=== PATIENT | male | born 1945 | race Caucasian/White ===

== ENCOUNTER 2018-01-17 18:35 | Inpatient (IN) | payer OTHER ==
[~2018-01-17] VITALS: Ht 175.3 cm; Wt 81.6 kg
[2018-01-17 18:35] VITALS: BP 152/94
[2018-01-17] MEDS ORDERED: ALBUTEROL 0.083% 2.5 MG/3 ML NEBU INH ONE (19:00)
[2018-01-17] MEDS ORDERED: methylPREDNISolone SS 125 MG/2 ML VIAL IVP ONE (19:00)
[2018-01-17] MEDS ORDERED: IPRATROPIUM 0.02% 0.5 MG/2.5 ML NEBU INH ONE (19:00)
[2018-01-17 20:44] LABS: BASOPHILS # (AUTO) 0.1 K/uL (0.00-0.22); BASOPHILS % (AUTO) 0.9 % (0.0-2.0); EOSINOPHILS # (AUTO) 0.1 K/uL (0-0.4); EOSINOPHILS % (AUTO) 1.1 % (0.0-4.0); HEMATOCRIT 47.2 % (36-52); HEMOGLOBIN 15.5 g/dL (12.0-18.0); LYMPHOCYTES # (AUTO) 1.5 K/uL (2.0-11.5); LYMPHOCYTES % (AUTO) 15.3 % (20.5-51.1); MEAN CORPUSCULAR HEMOGLOBIN 33 pg (27-31); MEAN CORPUSCULAR HGB CONC 33 g/dL (33-37); MEAN CORPUSCULAR VOLUME 99.6 fL (80-94); MONOCYTES # (AUTO) 0.7 K/uL (0.8-1.0); MONOCYTES % (AUTO) 7.2 % (1.7-9.3); NEUTROPHILS # (AUTO) 7.3 K/uL (1.8-7.7); NEUTROPHILS % (AUTO) 75.5 % (42.2-75.2); PLATELET COUNT (AUTO) 167 K/uL (140-450); RED BLOOD CELL COUNT(AUTO) 4.74 MIL/uL (4.20-6.10); RED CELL DISTRIBUTION WIDTH 14.1 % (11.6-13.7); WHITE BLOOD COUNT (AUTO) 9.7 K/uL (4.8-10.8)
[2018-01-17] MEDS ORDERED: NACL 0.9% 1,000 ML IV ONE (21:05)
[2018-01-17 21:08] LABS: SODIUM SERUM 144 mmol/L (136-145)
[2018-01-17 21:09] LABS: ALBUMIN 3.6 g/dL (3.4-5.0); ANION GAP 15.6 (8-16); ASPARTATE AMINOTRANSFERASE 20 U/L (15-37); CARBON DIOXIDE 20.8 mmol/L (21-32); CHLORIDE 111 mmol/L (98-107); CREATININE 1.4 mg/dL (0.7-1.3); GLUCOSE 99 mg/dL (74-106); POTASSIUM 3.4 mmol/L (3.5-5.1); TOTAL BILIRUBIN 1.2 mg/dL (0.0-1.0); UREA NITROGEN, BLOOD 15 mg/dL (7-18)
[2018-01-17 21:23] LABS: PROTHROMBIN TIME 13.3 secs (10.8-13.4)
[2018-01-17 23:22] LABS: APPEARANCE,URINE CLEAR (CLEAR); BILIRUBIN,URINE 1+ (NEGATIVE); BLOOD, URINE NEGATIVE (NEGATIVE); COLOR,URINE YELLOW (YELLOW); LEUKOCYTE ESTERASE ,URINE NEGATIVE (NEGATIVE); NITRITE, URINE NEGATIVE (NEGATIVE); PH,URINE 5.5 (5.0-9.0); UGLUCOSE NEGATIVE (NEGATIVE)
[2018-01-17 23:24] LABS: RBC,URINE 0-5 (RARE) /HPF (0-5); WBC,URINE 0-5 (RARE) /HPF (0-5)
[2018-01-18] VITALS (8 sets, daily range): BP systolic 112–140; BP diastolic 65–85
[2018-01-18] MEDS ORDERED: ACETAMINOPHEN 325 MG TAB PO PRN (00:10)
[2018-01-18] MEDS ORDERED: DOCUSATE SODIUM 100 MG GELCAP PO PRN (00:10)
[2018-01-18] MEDS ORDERED: ONDANSETRON 4 MG/2 ML VIAL IM/IVP PRN (00:10)
[2018-01-18 02:35] LABS: MAGNESIUM 1.8 mg/dL (1.8-2.4); PHOSPHORUS 3.2 mg/dL (2.5-4.9)
[2018-01-18 02:37] LABS: CHOL/HDL RATIO 3.3 (1-4.5)
[2018-01-18 02:38] LABS: FREE T4 (FREE THYROXINE) 1.44 ng/dL (0.76-1.46); THYROID STIMULATING HORMONE 3.4 uIU/mL (0.34-3.74)
[2018-01-18] MEDS ORDERED: MECLIZINE 25 MG TAB PO PRN (02:45)
[2018-01-18] MEDS ORDERED: NITROGLYCERIN 0.4 MG TAB SL PRN (02:50)
[2018-01-18] MEDS ORDERED: DEXT 5% /NACL 0.9% 1,000 ML IV SCH (03:30)
[2018-01-18 03:51] LABS: BARBITURATE, URINE NEGATIVE ng/ml (NEG <=200); BENZODIAZEPINE, URINE NEGATIVE ng/mL (NEG <=200); CANNABINOID, URINE NEGATIVE ng/mL (NEG <=50); COCAINE, URINE NEGATIVE ng/mL (NEG <=300); OPIATE, URINE NEGATIVE ng/mL (NEG <=2000); PHENCYCLIDINE SCREEN,URINE NEGATIVE ng/mL (NEG <=25)
[2018-01-18] MEDS: ALBUTEROL SULFATE/IPRATROPIU 3 ML SOL IH PRN (04:17)
[2018-01-18] MEDS: methylPREDNISolone SS 125 MG/2 ML VIAL IVP SCH ×2 (04:36→14:46)
[2018-01-18] MEDS: ALBUTEROL SULFATE/IPRATROPIU 3 ML SOL IH SCH ×3 (07:55→20:07)
[2018-01-18] MEDS: METOPROLOL 25 MG TAB PO SCH ×2 (10:15→20:55)
[2018-01-18] MEDS: POTASSIUM CHLORIDE 10 MEQ TABER PO SCH (10:15)
[2018-01-18] MEDS: LISINOPRIL 5 MG TAB PO SCH (10:16)
[2018-01-18] MEDS: ECOTRIN 81 MG TABEC PO SCH (10:16)
[2018-01-18] MEDS ORDERED: INFLUENZA VIRUS VACCINE QUAD 0.5 ML SYR IMVAC PRN (13:45)
[2018-01-18] MEDS: NACL 0.9% 1,000 ML IV SCH (14:47)
[2018-01-18] MEDS: ATORVASTATIN 20 MG TAB PO SCH (16:38)
[2018-01-18] MEDS: methylPREDNISolone SS 40 MG/ML VIAL IVP SCH (20:53)
[2018-01-18] MEDS: BRIMONIDINE TARTRATE 0.2% OP 5 ML BTL BOTH EYES SCH (21:00)
[2018-01-18] MEDS: LATANOPROST 0.005% OP 2.5 ML BTL BOTH EYES SCH (21:00)
[2018-01-18] MEDS ORDERED: hePARIN / DEXT 5% PREMIX 250 ML IV SCH (22:10)
[2018-01-18] MEDS ORDERED: HEPARIN PER PHARMACY MC PRN (22:10)
[2018-01-18] MEDS: hePARIN / DEXT 5% PREMIX 250 ML IV SCH ×2 (23:10→23:11)
[2018-01-19 00:25] VITALS: BP 150/83
[2018-01-19] MEDS ORDERED: LORazepam 2 MG/ML VIAL ONE ×2 (01:59→06:55)
[2018-01-19] MEDS ORDERED: LORazepam 2 MG/ML VIAL IM/IVP SCH ×2 (02:00→06:45)
[2018-01-19] MEDS: ALBUTEROL SULFATE/IPRATROPIU 3 ML SOL IH SCH ×5 (04:30→23:54)
[2018-01-19] MEDS: methylPREDNISolone SS 40 MG/ML VIAL IVP SCH (04:51)
[2018-01-19 04:56] VITALS: BP 127/76
[2018-01-19] MEDS: LEVOTHYROXINE 0.075 MG TAB PO SCH (05:41)
[2018-01-19 06:45] LABS: HEMATOCRIT 48.1 % (36-52); HEMOGLOBIN 15.8 g/dL (12.0-18.0); MEAN CORPUSCULAR HEMOGLOBIN 33 pg (27-31); MEAN CORPUSCULAR HGB CONC 33 g/dL (33-37); MEAN CORPUSCULAR VOLUME 99.8 fL (80-94); PLATELET COUNT (AUTO) 181 K/uL (140-450); RED BLOOD CELL COUNT(AUTO) 4.82 MIL/uL (4.20-6.10); WHITE BLOOD COUNT (AUTO) 19.3 K/uL (4.8-10.8)
[2018-01-19 06:52] LABS: CARBON DIOXIDE 23.1 mmol/L (21-32); CHLORIDE 106 mmol/L (98-107); CREATININE 1.4 mg/dL (0.7-1.3); GLUCOSE 142 mg/dL (74-106); POTASSIUM 4.1 mmol/L (3.5-5.1); SODIUM SERUM 142 mmol/L (136-145); UREA NITROGEN, BLOOD 16 mg/dL (7-18)
[2018-01-19 07:21] LABS: LYMPHOCYTES % (MANUAL) 3 % (20-46); MONOCYTES % (MANUAL) 3 % (5-12)
[2018-01-19 08:00] VITALS: BP 119/65
[2018-01-19 08:18] LABS: T4 (THYROXINE) 8.8 ug/dL (4.5-12.0)
[2018-01-19] MEDS: ECOTRIN 81 MG TABEC PO SCH (08:30)
[2018-01-19] MEDS: TAMSULOSIN 0.4 MG CAP PO SCH (08:30)
[2018-01-19] MEDS: POTASSIUM CHLORIDE 10 MEQ TABER PO SCH (08:49)
[2018-01-19] MEDS: METOPROLOL 25 MG TAB PO SCH ×2 (08:49→20:26)
[2018-01-19] MEDS: LISINOPRIL 5 MG TAB PO SCH (08:49)
[2018-01-19] MEDS: BRIMONIDINE TARTRATE 0.2% OP 5 ML BTL BOTH EYES SCH ×2 (09:00→20:25)
[2018-01-19 14:02] VITALS: BP 142/80
[2018-01-19] MEDS: NACL 0.9% 1,000 ML IV SCH (14:38)
[2018-01-19] MEDS: ATORVASTATIN 20 MG TAB PO SCH (17:15)
[2018-01-19] MEDS: HYDROcodone/APAP 7.5/325 MG 1 TAB PO PRN (18:36)
[2018-01-19] MEDS: ALBUTEROL SULFATE/IPRATROPIU 3 ML SOL IH PRN (18:44)
[2018-01-19] MEDS ORDERED: LORazepam 2 MG/ML VIAL IM/IVP PRN (18:45)
[2018-01-19] MEDS ORDERED: ZOLPIDEM 5 MG TAB PO PRN (18:45)
[2018-01-19 20:00] VITALS: BP 103/56
[2018-01-19] MEDS: LATANOPROST 0.005% OP 2.5 ML BTL BOTH EYES SCH (20:26)
[2018-01-20] VITALS: BP 116/57
[2018-01-20 04:00] VITALS: BP 138/93
[2018-01-20] MEDS: LEVOTHYROXINE 0.075 MG TAB PO SCH (06:32)
[2018-01-20] MEDS: HYDROcodone/APAP 7.5/325 MG 1 TAB PO PRN ×2 (06:58→13:54)
[2018-01-20 07:16] LABS: BASOPHILS % (AUTO) 0.2 % (0.0-2.0); HEMATOCRIT 48.7 % (36-52); HEMOGLOBIN 15.8 g/dL (12.0-18.0); LYMPHOCYTES # (AUTO) 1.5 K/uL (2.0-11.5); LYMPHOCYTES % (AUTO) 9.3 % (20.5-51.1); MEAN CORPUSCULAR HEMOGLOBIN 32 pg (27-31); MEAN CORPUSCULAR HGB CONC 32 g/dL (33-37); MEAN CORPUSCULAR VOLUME 99.6 fL (80-94); MONOCYTES # (AUTO) 1.4 K/uL (0.8-1.0); MONOCYTES % (AUTO) 8.7 % (1.7-9.3); NEUTROPHILS # (AUTO) 13.5 K/uL (1.8-7.7); NEUTROPHILS % (AUTO) 81.8 % (42.2-75.2); PLATELET COUNT (AUTO) 161 K/uL (140-450); RED BLOOD CELL COUNT(AUTO) 4.89 MIL/uL (4.20-6.10); RED CELL DISTRIBUTION WIDTH 14.3 % (11.6-13.7); WHITE BLOOD COUNT (AUTO) 16.5 K/uL (4.8-10.8)
[2018-01-20 07:39] LABS: ANION GAP 14.4 (8-16); CARBON DIOXIDE 23.2 mmol/L (21-32); CHLORIDE 111 mmol/L (98-107); CREATININE 1.3 mg/dL (0.7-1.3); GLUCOSE 99 mg/dL (74-106); POTASSIUM 3.6 mmol/L (3.5-5.1); SODIUM SERUM 145 mmol/L (136-145); UREA NITROGEN, BLOOD 23 mg/dL (7-18)
[2018-01-20 07:43] LABS: MAGNESIUM 2.3 mg/dL (1.8-2.4); PHOSPHORUS 3.2 mg/dL (2.5-4.9)
[2018-01-20 08:00] VITALS: BP 155/70
[2018-01-20] MEDS: POTASSIUM CHLORIDE 10 MEQ TABER PO SCH (08:47)
[2018-01-20] MEDS: ECOTRIN 81 MG TABEC PO SCH (08:47)
[2018-01-20] MEDS: METOPROLOL 25 MG TAB PO SCH (08:47)
[2018-01-20] MEDS: LISINOPRIL 5 MG TAB PO SCH (08:47)
[2018-01-20] MEDS: TAMSULOSIN 0.4 MG CAP PO SCH (08:48)
[2018-01-20] MEDS: ALBUTEROL SULFATE/IPRATROPIU 3 ML SOL IH SCH ×2 (09:04→13:50)
[2018-01-20] MEDS: BRIMONIDINE TARTRATE 0.2% OP 5 ML BTL BOTH EYES SCH (09:38)
[2018-01-20] MEDS ORDERED: DEXT 5% / NACL 0.45% 1,000 ML IV SCH (10:10)
[2018-01-20 12:00] VITALS: BP 110/72
[2018-01-20] MEDS ORDERED: ALPOS BOTH EYES (14:54)
[2018-01-20] MEDS ORDERED: NITR0.4T1 SL (14:54)
[2018-01-20] MEDS ORDERED: ATOR20TA40 PO (14:54)
[2018-01-20] MEDS ORDERED: METO25TA PO (14:54)
[2018-01-20] MEDS ORDERED: SYN.075 PO (14:54)
[2018-01-20] MEDS ORDERED: ASPI-1173 PO (14:54)
[2018-01-20] MEDS ORDERED: LISI-424 PO (14:54)
[2018-01-20] MEDS ORDERED: XALOS BOTH EYES (14:54)
[2018-01-20] MEDS ORDERED: MECL-272 PO (14:54)
[2018-01-20] MEDS ORDERED: TAMS0.4C96 PO (14:54)
== END 2018-01-20 16:25 | disposition short-term general hospital (02) | DRG 682 ==
LOC: MED 18:35 → MTU 01-18 00:09
PROVIDERS: ADMIT General Practice; ATTEND General Practice
PROC: 0BJK3ZZ Inspection of Right Lung, Percutaneous Approach (ICD-10-PCS; principal; 2018-01-19)
DX: N17.0 Acute kidney failure with tubular necrosis (principal); J96.01 Acute respiratory failure with hypoxia; I50.41 Acute combined systolic (congestive) and diastolic (congestive) heart failure; J44.1 Chronic obstructive pulmonary disease with (acute) exacerbation; G93.40 Encephalopathy, unspecified; R65.10 Systemic inflammatory response syndrome (SIRS) of non-infectious origin without acute organ dysfunction; E87.2 Acidosis; E87.6 Hypokalemia; R91.8 Other nonspecific abnormal finding of lung field; E78.5 Hyperlipidemia, unspecified; E03.9 Hypothyroidism, unspecified; E86.0 Dehydration; I48.2 Chronic atrial fibrillation; I11.0 Hypertensive heart disease with heart failure; H40.9 Unspecified glaucoma; N40.0 Benign prostatic hyperplasia without lower urinary tract symptoms; R13.10 Dysphagia, unspecified; R59.0 Localized enlarged lymph nodes; E66.3 Overweight; T38.0X5A Adverse effect of glucocorticoids and synthetic analogues, initial encounter; F41.9 Anxiety disorder, unspecified; R79.89 Other specified abnormal findings of blood chemistry; Z85.51 Personal history of malignant neoplasm of bladder; Z87.891 Personal history of nicotine dependence; Z80.1 Family history of malignant neoplasm of trachea, bronchus and lung; Z68.26 Body mass index [BMI] 26.0-26.9, adult; Y92.89 Other specified places as the place of occurrence of the external cause; R41.0 Disorientation, unspecified
CPT/HCPCS: 36415; 36600; 70450; 71045; 71275; 74018; 80048; 80053; 80305; 81001; 82140; 82150; 82550; 82803; 83036; 83605; 83690; 83735; 83880; 84100; 84436; 84439; 84443; 84479; 84484; 85025; 85379; 85610; 85730; 87040; 87081; 87086; 92610; 93005; 93880; 94640; 96361; 96374; 97110; 97116; 97530; 99285; C1758; J1644; J2001; J2060; J2920; J2930; J7030; J7042; J7613; J7620; J7644; Q0092; Q9967